=== PATIENT | male | born 1960 | race Two or more races ===

== ENCOUNTER 2017-03-27 00:14 | Emergency (ER) | payer MEDICAID ==
[~2017-03-27] VITALS: Ht 154.9 cm; Wt 81.6 kg
[2017-03-27 00:30] VITALS: BP 148/81
[2017-03-27] MEDS ORDERED: HYDROmorphone 1mg/ml Carpuject IM ONE (01:45)
[2017-03-27] MEDS ORDERED: IBUPROFEN600 MG ORAL (01:58)
[2017-03-27] MEDS ORDERED: HYDROCODON-ACE1 EA15 ORAL (01:58)
[2017-03-27] MEDS ORDERED: MEDROL4 M1 PO (01:58)
--- NOTE | 2017-03-27 01:58 | Emergency Room Report ---
History of Present Illness General Chief Complaint: Lower Back Pain or Injury Source: Patient Present Illness HPI Is a 57-year-old male with no significant past medical history. He said he has a history of herniated disc in the 90s after an accident. He was doing well since then. He presents with chief complaint of lower back pain for the last couple weeks. For the last couple days pain going down his left leg. Also with numbness to his leg when he stands too long. Denies any fever chills denies any trauma. No loss. No incontinence of bowel or urine. Pain is 8/10. No relief with [id number] medication. Allergies: Coded Allergies: METHADONE (Verified Allergy, Unknown, 03/27/17) PENICILLINS (Verified Allergy, Unknown, 03/27/17) Patient History Past Medical History: see triage record, old chart reviewed Past Surgical History: other Pertinent Family History: none Social History: Denies: smoking Immunizations: other Reviewed Nursing Documentation: PMH: Agreed, PSxH: Agreed Nursing Documentation-PM Past Medical History: No History, Except For Review of Systems Eye: Denies: blurred vision, eye pain ENT: Denies: ear pain, nose congestion, throat swelling Respiratory: Denies: cough, shortness of breath Cardiovascular: Denies: chest pain, palpitations Gastrointestinal: Denies: abdominal pain, diarrhea, nausea, vomiting Musculoskeletal: Reports: back pain, Denies: joint pain Skin: Denies: rash Neurological: Denies: headache, numbness Endocrine: Denies: increased thirst, increased urine Hematologic/Lymphatic: Denies: easy bruising All Other Systems: negative except mentioned in HPI Physical Exam Vital Signs Date Time Temp Pulse Resp B/P Pulse Ox O2 Delivery O2 Flow Rate FiO2 03/27/17 00:23 97.5 76 16 148/81 100 Room Air vitals unremarkable Sp02 EP Interpretation: reviewed, normal General Appearance: well appearing, no apparent distress, alert Head: normocephalic, atraumatic Eyes: bilateral eye EOMI, bilateral eye PERRL ENT: hearing grossly normal, normal pharynx Neck: full range of motion, supple, no meningismus Respiratory: chest non-tender, lungs clear, normal breath sounds Cardiovascular #1: regular rate, rhythm, no murmur Gastrointestinal: normal bowel sounds, non tender, no mass, no organomegaly, no bruit, non-distended Musculoskeletal: back normal - Mild tenderness to the lower back. No step-off or deformity. Positive straight leg raise, gait/station normal, normal range of motion Neurologic: alert, oriented x3, responsive Psychiatric: mood/affect normal Skin: warm/dry Medical Decision Making Diagnostic Impression: Primary Impression: Low back pain Qualified Codes: M54.42 - Lumbago with sciatica, left side Additional Impression: Degenerative disc disease, lumbar ER Course Patient presents with degenerative changes of his lower back with radiculopathy. No evidence of cauda equina syndrome, spinal or abscess or neoplastic process. Better pain control now. We'll discharge home. CT/MRI/US Diagnostic Results CT/MRI/US Diagnostic Results : Imaging Test Ordered: CT lumbar spine Impression Read by radiologist. degenerative disc disease with severe canal stenosis. Last Vital Signs Date Time Temp Pulse Resp B/P Pulse Ox O2 Delivery O2 Flow Rate FiO2 03/27/17 00:30 97.5 87 16 148/81 100 Room Air Status: improved Disposition: HOME, SELF-CARE Condition: Stable Scripts Methylprednisolone (MEDROL) 4 Mg Tab.ds.pk 4 MG PO DAILY, #1 PACK Prov: AIXA BRAVO M.D. 03/27/17 Ibuprofen* (MOTRIN*) 600 Mg Tablet 600 MG ORAL THREE TIMES A DAY, #30 TAB 0 Refills Prov: AIXA BRAVO M.D. 03/27/17 Hydrocodone/Acetaminophen 5-325* (HYDROCODONE/ACETAMINOPHEN 5-325*) 1 Each Tablet 1 TAB ORAL Q6H Y for For Pain, #30 TAB 0 Refills Prov: AIXA BRAVO M.D. 03/27/17 Referrals: NON PHYSICIAN (PCP) Additional Instructions: Followup with your DrAndre in 7 days. You may need an MRI his symptoms do not improve. Return if symptom worsen. AIXA BRAVO M.D. Mar 27, 2017 01:58
[2017-03-27 02:45] VITALS: BP_SYST 137; BP_SYST 148; BP_DIAS 66; BP_DIAS 81
--- NOTE | 2017-03-27 10:35 | Diagnostic Imaging Report ---
Indications: Back pain Technique: Continuous helical CT imaging of the lumbar spine was performed with automatic exposure control on a Siemens sensation [address] scanner. Axial, coronal, and sagittal images were reconstructed at 3 mm slice thicknesses. CTDI volume(s): 21 mGy Total DLP: 727 mGy-cm Findings: Comparison: None T12-L1: Mild annular disc bulge. Focal calcification in posterior longitudinal ligament. Spinal canal, lateral recesses and neural foramina normal caliber. L1-2: Mild annular disc bulge. Spinal canal, lateral recesses and neural foramina normal caliber. L2-3: Mild annular disc bulge. Focal calcification of the posterior longitudinal ligament. 2 mm posterior subluxation of L2 on L3. Mild facet and ligamentous hypertrophy. Spinal canal narrowed to 9 mm AP diameter. Lateral recesses moderately, and neural foramina mildly narrowed bilaterally. L3-4: Mild annular disc bulge. 3 mm anterior subluxation of L3 on L4. Marked facet and ligamentous hypertrophy. Spinal canal narrowed to 6 mm AP by 7 mm transverse diameters. Severe narrowing of both lateral recesses. Mild/moderate narrowing of both neural foramina. L4-5: Mild annular disc bulge. Moderate facet, ligamentous hypertrophy. Spinal canal narrowed to 8 mm AP by 8 mm transverse diameters. Severe narrowing of lateral recesses. Moderate narrowing of neural foramina. L5-S1: Prominent posterior annular disc bulge with marginal osteophyte formation. Mild facet and ligamentous hypertrophy. Spinal canal narrowed to 6 mm AP by 6 mm transverse diameters. Lateral recesses severely, neural foramina moderately narrowed bilaterally. Paraspinous soft tissues unremarkable. IMPRESSION: Multilevel degenerative disc disease, facet and ligamentous hypertrophy as described in detail level by level above. This results in multilevel significant spinal stenosis and lateral recess narrowing, lesser neural foraminal narrowing, as described. Neural impingement must be considered. MRI recommended for more detailed evaluation. Multilevel grade 1 spondylolisthesis, likely chronic degenerative in nature This correlates with [facility] preliminary report..
== END 2017-03-27 02:46 | disposition home or self-care (01) ==
LOC: EMR 01:16
DX: M51.16 Intervertebral disc disorders with radiculopathy, lumbar region (principal); M43.16 Spondylolisthesis, lumbar region; Z88.0 Allergy status to penicillin
CPT/HCPCS: 72131; 96372; 99284; J1170